=== PATIENT | female | born 1990 | race Caucasian/White ===

== ENCOUNTER 2022-11-25 07:53 | Emergency (ER) | payer OTHER ==
[~2022-11-25] VITALS: Ht 157.5 cm; Wt 56.8 kg
[~2022-11-25 07:53] MED LIST: DSS100 PO; FERR-72 PO; IBUP-1492 PO; PREN-27 PO
[2022-11-25] MEDS ORDERED: PERTUSS(ACELL),DIPH,TET VAC/PF 0.5 ML SYRINGE IM. ONE (08:15)
[2022-11-25] MEDS ORDERED: BACITRACIN 0.9 GM PACKET OINTMENT TP ONE (08:15)
[2022-11-25] MEDS ORDERED: DOXYCYCLINE HYCLATE 100 MG TABLET PO ONE (08:15)
[2022-11-25] MEDS ORDERED: DOXY-354 PO (09:54)
[2022-11-25 10:17] VITALS: BP 124/67
== END 2022-11-25 10:50 | disposition home or self-care (01) ==
LOC: EMS 08:20
DX: S70.922A Unspecified superficial injury of left thigh, initial encounter (principal); F17.210 Nicotine dependence, cigarettes, uncomplicated; Z98.890 Other specified postprocedural states; W25.XXXA Contact with sharp glass, initial encounter; Y93.89 Activity, other specified; Y92.89 Other specified places as the place of occurrence of the external cause; Y99.0 Civilian activity done for income or pay
CPT/HCPCS: 73552; 90471; 90715; 99283